=== PATIENT | female | born 1975 | race Caucasian/White ===

== ENCOUNTER 2016-10-20 15:13 | Emergency (ER) | payer OTHER ==
--- NOTE | ~2016-10-20 | CT2 ---
[facility] A Service of [facility] RADIOLOGY TEXT RESULTS PATIENT: NICK REDDY LOCATION: [facility] : 79 UNIT #: [id number] AGE: [address]: Anastasiya Dent SEX: F ORDER DR: [id number] [facility] [address] [place], [place] [address] [id number] MR#: [id number] Acc #: [id number] NAME: NICK REDDY : 1975 SEX: F STUDY DATE/TIME: 10/20/2016 16:09 UNIT: [facility] ROOM: STUDY DESCRIPTION: CT Abd and Pelv W Cont Attending Physician: Anastasiya Dent P.A.-C. Ordering Physician: Anastasiya Dent P.A.-C. Primary Care Physician: Deandra Hartmann M.D. MEDICAL IMAGING REPORT This report is preliminary unless electronic signature is present EXAM CT abdomen and pelvis, 10/20/2016. HISTORY Right lower quadrant pain. BNL x2 days. Depression. Partial hysterectomy, hand surgery. TECHNIQUE This CT exam was performed with one or more of the following radiation dose reduction techniques: automatic exposure control, adjustment of mA and/or kV according to patient size, and iterative reconstruction. FINDINGS CT abdomen and pelvis performed with intravenous administration of 100 mL Isovue-370. Enteric contrast also administered. The lung bases show a 3-4 mm noncalcified subpleural nodule left lung base posteriorly, image 17. A 4 mm noncalcified pulmonary nodule in the right lower lobe, image 6. Calcified granuloma in the right lower lobe as well. Ill-defined questionably partially calcified 4 mm pulmonary nodule left lower lobe, image 2. Inferior heart and pericardium unremarkable. Liver, gallbladder, spleen, pancreas, adrenal glands unremarkable. Kidneys unremarkable. There is streak artifact from umbilical jewelry not removed prior to examination. CT PELVIS: No inguinal adenopathy. Status post hysterectomy. Patient appears to retain the left ovary which contains 2 dominant cysts, one measuring about 1.4 cm and one measuring about 1.1 cm. No suspicious adnexal structures and no fluid collections in the pelvis. No pelvic or retroperitoneal adenopathy. Distal esophagus, stomach, small bowel unremarkable. Appendix is retrocecal in location and normal in appearance. The colon is unremarkable. There are no abnormal fluid collections in the abdomen or pelvis. The vascular structures are STS. [facility] A Service of [facility] & [facility] RADIOLOGY TEXT RESULTS PATIENT: NICK REDDY LOCATION: [facility] : 79 UNIT #: [id number] AGE: [address]: Anastasiya Dent SEX: F ORDER DR: unremarkable. Bony structures unremarkable. IMPRESSION 1. No suspicious acute abnormality is seen in the abdomen or pelvis. The gallbladder, pancreas, kidneys, and appendix are normal in appearance. Remainder of alimentary canal unremarkable. 2. The patient is status post hysterectomy. Patient appears to retain the left ovary. I do not see the right ovary. No abnormal right adnexal structures are seen. The left ovary contains 2 cysts measuring approximately 1.4 cm and 1.1 cm respectively. No fluid collections. 3. Noncalcified pulmonary nodules at the bilateral lung bases. Largest on the right measures about 4 mm (image 6) and largest on the left measures about 4 mm as well (image 2). In the absence of prior studies demonstrating prolonged stability of these nodules, 12-month CT followup would be recommended. 4. There is a calcified granuloma in the right lower lobe as well. Dictated by... Omar Carter M.D. THIS IS AN ELECTRONICALLY VERIFIED REPORT Omar Carter M.D. at 10/21/2016 12:31 PM Riley TD: 10/20/2016 21:54 JOB #: [id number] MEDICAL IMAGING REPORT COPY
[2016-10-20 14:28] LABS: URINE SOURCE CLEAN CATCH
[2016-10-20 14:34] LABS: URINE APPEARANCE CLEAR; URINE BILIRUBIN NEG (NEG); URINE BLOOD NEG (NEG); URINE COLOR YELLOW; URINE GLUCOSE NEG (NEG); URINE KETONE NEG (NEG); URINE LEUKOCYTE ESTERASE NEG (NEG); URINE NITRATE NEG (NEG); URINE PROTEIN NEG (NEG); URINE SPECIFIC GRAVITY 1.016 (1.003-1.035)
[2016-10-20 14:41] LABS: CULTURE INDICATED? NO
[2016-10-20 15:17] LABS: BASOPHIL# 0.1 X10e3 (0-0.3); BASOPHIL% 0.9 % (0-2.5); DIFF IND NO; EOSINOPHIL# 0.1 X10e3 (0-0.7); EOSINOPHIL% 1.5 % (0.0-7.0); MEAN CELL VOLUME 93.1 FL (83-96); MEAN CORPUSCULAR HEMOGLOBIN 31.8 PG (28-34); MEAN CORPUSCULAR HGB CONC 34.2 g/dL (30-36); MEAN PLATELET VOLUME 7.7 FL (6.5-11.5); MONOCYTE# 0.5 X10e3 (0-1.0); NEUTROPHIL# 3.7 X10e3 (1.5-7.1); NEUTROPHIL% 58.6 % (40-75); PLATELET COUNT 304 X10e3 (140-420); RED BLOOD COUNT 4.73 X10e (3.90-5.30); RED CELL DISTRIBUTION WIDTH 12.5 % (11.0-15.5); WHITE BLOOD COUNT 6.3 X10e3 (4.0-10.5)
[2016-10-20 15:43] LABS: ALBUMIN SERUM 4.5 g/dL (3.5-5.0); ALKALINE PHOSPHATASE 70 U/L (32-92); ALT (SGPT) 19 U/L (10-40); AMYLASE 16 U/L (0-46); AST (SGOT) 19 U/L (10-42); BILIRUBIN, DIRECT 0.1 mg/dL (0.0-0.2); BILIRUBIN,INDIRECT 0.6 mg/dL (0.0-0.9); BILIRUBIN,TOTAL 0.7 mg/dL (0.2-2.0); BLOOD UREA NITROGEN 14 mg/dL (9-23); CALCIUM SERUM 8.5 mg/dL (8.4-10.2); CARBON DIOXIDE 27 mmol/L (22-31); CHLORIDE 104 mmol/L (100-111); CREATININE SERUM 0.7 mg/dL (0.6-1.4); GLOM FILT RATE Estimated ABOVE60 mL/min (>60); GLUCOSE FASTING 96 mg/dL (70-110); LIPASE 26 U/L (22-51); POTASSIUM 4.3 mmol/L (3.5-5.1); PROTEIN TOTAL SERUM 7.7 g/dL (6.0-8.3); SODIUM 134 mmol/L (135-145)
== END 2016-10-20 17:10 | disposition home or self-care (01) ==
LOC: CFTX 15:13
PROVIDERS: Emergency Medicine
DX: R10.31 Right lower quadrant pain (principal); R91.1 Solitary pulmonary nodule; F32.9 Major depressive disorder, single episode, unspecified; F17.210 Nicotine dependence, cigarettes, uncomplicated; Z90.710 Acquired absence of both cervix and uterus; Z88.0 Allergy status to penicillin
CPT/HCPCS: 36415; 74177; 80048; 80076; 81003; 82150; 83690; 84703; 85025; 96360; 99284; J1885; J2405; Q9967